=== PATIENT | female | born 1955 | race Caucasian/White ===

== ENCOUNTER 2018-01-10 09:13 | Day surgery (SDC) | payer OTHER ==
[~2018-01-10] VITALS: Ht 167.6 cm; Wt 52.9 kg
[~2018-01-10 09:13] MED LIST: Hair, Skin & N1 EACH
[2018-01-10] MEDS ORDERED: ALEN70 (10:11)
[2018-01-10] MEDS ORDERED: ERGO400 (10:11)
== END 2018-01-10 11:13 | disposition home or self-care (01) ==
LOC: ORSCSDS 09:13
PROVIDERS: Internal Medicine Gastroenterology
PROC: 0DBP8ZX Excision of Rectum, Via Natural or Artificial Opening Endoscopic, Diagnostic (ICD-10-PCS; principal; 2018-01-10 10:45)
PROC: 0DBK8ZX Excision of Ascending Colon, Via Natural or Artificial Opening Endoscopic, Diagnostic (ICD-10-PCS; principal; 2018-01-10 10:45)
DX: Z12.11 Encounter for screening for malignant neoplasm of colon (principal); D12.2 Benign neoplasm of ascending colon; D12.8 Benign neoplasm of rectum
CPT/HCPCS: 88305; J7120

== ENCOUNTER → 2019-09-10 | Outpatient (CLI) | payer OTHER ==
[~2019-09-10] MED LIST changes: +ALEN70; +ERGO400
== END | disposition home or self-care (01) ==
LOC: LAB SHORT 10:01 → LAB EV 10:01
DX: S61.431A Puncture wound without foreign body of right hand, initial encounter (principal)
CPT/HCPCS: 87070; 87075; 87205

== ENCOUNTER → 2023-01-31 | Outpatient (CLI) | payer OTHER | LOC: LAB SHORT 14:40 → LAB 14:40 | DX: R30.0 Dysuria (principal) | CPT/HCPCS: 87086 ==

== ENCOUNTER 2023-09-22 06:46 | Day surgery (SDC) | payer OTHER ==
[~2023-09-22] VITALS: Ht 165.1 cm; Wt 59.0 kg
[~2023-09-22 06:46] MED LIST changes: -ALEN70; +ALEN70 PO; +ROSU5 PO
[2023-09-22 08:48] VITALS: BP 106/66
--- NOTE | 2023-09-22 08:52 | NUR ---
09/22/23 0852 Jimena Tirado IV,CATHETER WNL
== END 2023-09-22 08:44 | disposition home or self-care (01) ==
LOC: ORSCSDS 06:46
PROVIDERS: Specialist
PROC: 0DBK8ZX Excision of Ascending Colon, Via Natural or Artificial Opening Endoscopic, Diagnostic (ICD-10-PCS; principal; 2023-09-22 08:00)
PROC: 0DBH8ZX Excision of Cecum, Via Natural or Artificial Opening Endoscopic, Diagnostic (ICD-10-PCS; principal; 2023-09-22 08:00)
PROC: 0DBP8ZX Excision of Rectum, Via Natural or Artificial Opening Endoscopic, Diagnostic (ICD-10-PCS; principal; 2023-09-22 08:00)
DX: R15.1 Fecal smearing (principal); Z86.010 Personal history of colon polyps; K62.1 Rectal polyp; D12.0 Benign neoplasm of cecum; D12.2 Benign neoplasm of ascending colon; K64.8 Other hemorrhoids; E78.5 Hyperlipidemia, unspecified; Z87.891 Personal history of nicotine dependence; Z79.899 Other long term (current) drug therapy
CPT/HCPCS: 88305; J2704; J7120